=== PATIENT | male | born 1955 | race Caucasian/White ===

== ENCOUNTER 2020-07-21 15:41 | Inpatient (IN) | payer MEDICAID ==
[~2020-07-21] VITALS: Ht 182.9 cm; Wt 98.8 kg
[2020-07-21] MEDS ORDERED: ETOMIDATE 20 MG/10 ML ONE (15:53)
[2020-07-21] MEDS ORDERED: PROPOFOL 10 MG/ML, 100ML IV ONE (15:53)
[2020-07-21] MEDS ORDERED: MIDAZOLAM 1 MG/ML, 5ML ONE (15:53)
[2020-07-21] MEDS ORDERED: SODIUM CHLORIDE FLUSH 10ML SYR IVF ONE (16:00)
[2020-07-21] MEDS ORDERED: SODIUM CHLORIDE 0.9% 1,000ML IVBOLUS ONE ×2 (16:00→17:30)
--- NOTE | 2020-07-21 16:07 | NUR ---
BIB [facility] FROM HOME. PT [facility] AND DX W/ FX L PATELLA AND HAS BEEN WEAK X 4 DAYS. PT HAS BEEN UNABLE TO GET OOB AND HAS DEFECATED/URINATED ON SELF. ALSO HAS DARK BROWN URINE. FOUND TO BE 72% RA PLACED ON 15 L NONREBREATHER O2 SATS INCREASED TO 89-90%. ETCO2 PER [facility] 20-24. RR 38-45. +DIFFUSE RHONCHI. TEMP PER EMS 100.7 PT IS NOT A GOOD HISTORIAN AND IS HAVING DIFFICULTY ANSWERING QUESTIONS. PT AO TO SELF. PT NOTED TO HAVE URINE AND STOOL ON SELF. PT CLEANED AND TREASURE CARE PERFORMED. STAGE 2 PRESSURE ULCER NOTED ON COCCYX.
--- NOTE | 2020-07-21 16:09 | NUR ---
PT PLACED ON OPTIFLOW PT SATING 88% ON 15L NON-REBREATHER MASK. DR. HUMPHRIES AT BEDSIDE AND ERP DR. FRANKEL NOTIFIED OF PT O2 SATS AND BEING PLACED ON OPTIFLOW.
[2020-07-21 16:13] LABS: BASOPHILS # (AUTO) 0.01 x10^3/uL (0-0.1); BASOPHILS % (AUTO) 0 % (0-1); EOSINOPHILS % (AUTO) 0 % (1-7); LYMPHOCYTES # (AUTO) 0.27 x10^3/uL (1-3.4); LYMPHOCYTES % (AUTO) 5 % (22-44); MD NO; MEAN CORPUSCULAR HEMOGLOBIN 31.4 pg (27.5-34.5); MEAN CORPUSCULAR HGB CONC 34.6 g/dL (33.2-36.2); MEAN CORPUSCULAR VOLUME 90.6 fL (81-97); MEAN PLATELET VOLUME 8.2 fL (7.4-10.4); MONOCYTES # (AUTO) 0.43 x10^3/uL (0.2-0.8); MONOCYTES % (AUTO) 9 % (2-9); NEUTROPHILS # (AUTO) 4.32 x10^3/uL (1.8-6.8); NEUTROPHILS % (AUTO) 86 % (42-75); PLATELET COUNT 120 x10^3/uL (130-400); RED BLOOD COUNT 4.44 x10^6/uL (4.38-5.82); RED CELL DISTRIBUTION WIDTH 13.7 % (9.4-14.8)
--- NOTE | 2020-07-21 16:15 | NUR ---
PT NOTED TO BE 87-90% ON OPTIFLOW. ERP NOTIFIED.
[2020-07-21 16:20] LABS: CHLORIDE 107 mmol/L (98-107)
[2020-07-21] MEDS ORDERED: ENOXAPARIN 40 MG/0.4 ML ONE (16:22)
[2020-07-21] MEDS ORDERED: CEFTRIAXONE PMX 1GM/50ML 50 ML ONE (16:22)
[2020-07-21] MEDS: CEFTRIAXONE PMX 1GM/50ML 50 ML IV SCH (16:27)
[2020-07-21] MEDS: DOXYCYCLINE 100 MG in DEXTROSE 5% 250 ML IV SCH ×3 (16:27→16:56)
[2020-07-21] MEDS ORDERED: LABETALOL 5MG/ML, 20ML IVPush PRN (16:30)
[2020-07-21] MEDS ORDERED: ONDANSETRON 2MG/ML, 2ML IVPush PRN (16:30)
[2020-07-21] MEDS ORDERED: OXYcodone IR 5MG TABLET PO PRN (16:30)
[2020-07-21] MEDS ORDERED: ENOXAPARIN 40 MG/0.4 ML SQ SCH (16:30)
[2020-07-21] MEDS ORDERED: POLYETHYLENE GLYCOL 17 GM PACKET PO PRN (16:30)
[2020-07-21] MEDS ORDERED: ENALAPRILAT 1.25 MG/ML, 2ML IVPush PRN (16:30)
[2020-07-21] MEDS ORDERED: CEFTRIAXONE PMX 1GM/50ML 50 ML IV ONE (16:30)
[2020-07-21] MEDS ORDERED: BISACODYL 10 MG SUPP PR PRN (16:30)
--- NOTE | 2020-07-21 16:38 | NUR ---
Patient has given verbal permission for Fransisca Acuna and Alok Garcia-Son to receive all updates regarding his medical care.
[2020-07-21 16:40] LABS: ALBUMIN 3.2 g/dL (3.4-5.0); ANION GAP 10 mmol/L (5-15); CALCIUM 8.6 mg/dL (8.5-10.1)
--- NOTE | 2020-07-21 16:51 | NUR ---
ERP NOTIFIED OF PT O2 SATS REMAINING 87-90%. PER FAMILY PT IS MOUTH BREATHER. PT EDUCATED THE IMPORTANCE OF BREATHING THROUGH NOSE. WHEN THIS RN IS ATBEDSIDE REMINDING PT TO BREATHE THROUGH NOSE PT O2 SATS GO UP TO 92-94%. WHEN PT LEFT W/O PROMPTS MOUTH BREATHES AND DESATS TO 87-90% AGAIN. PT BREATHING RR 39. ERP MADE AWARE. PT CESAR OPTIFLOW WELL.
[2020-07-21 16:59] LABS: ALANINE AMINOTRANSFERASE 47 U/L (12-78); CREATININE 2.13 mg/dL (0.7-1.3)
[2020-07-21 17:03] LABS: BILIRUBIN,TOTAL 0.7 mg/dL (0.2-1.0)
--- NOTE | 2020-07-21 17:08 | NUR ---
PER PEG, PT SON PT HAS BEEN CONFUSED X 4 DAYS.
--- NOTE | 2020-07-21 17:20 | NUR ---
PT CHANGED FROM NASAL CANNULA OPTIFLOW TO MASK OPTIFLOW. PT REMAINS SATING 88-92%. PER ERP DR. FRANKEL DOES NOT WANT TO INTUBATE PT W/ O2 SATS CLOSE TO WNL. ERP MADE AWARE OF PT RR REMAINS ELEVATED.
[2020-07-21] MEDS ORDERED: SODIUM CHLORIDE 0.9%, 250ML IVBOLUS ONE (17:30)
[2020-07-21] MEDS ORDERED: SODIUM CHLORIDE 0.9% 1,000 ML IV SCH (17:30)
[2020-07-21 17:34] LABS: ALKALINE PHOSPHATASE 71 U/L (45-117)
--- NOTE | 2020-07-21 18:02 | NUR ---
PT RESTING ON GURNEY. REPOSITIONED FOR COMFORT.
--- NOTE | 2020-07-21 18:36 | NUR ---
PT ALSO NOTED TO HAVE O2 SATS 92-95% ON OPTIFLOW. PT NOTED TO BE BREATHING EASIER THAN ON ARRIVAL. ERP ALSO MADE AWARE.
--- NOTE | 2020-07-21 18:36 | NUR ---
PT HAD LARGE BM ON SELF. TREASURE CARE PERFORMED. PT REPOSITIONED FOR COMFORT. PT CESAR WELL. RECTAL TEMP TAKEN. PT NOTED TO BE RECTAL TEMP 101.[address] FRANKEL NOTIFIED.
[2020-07-21] MEDS ORDERED: ACETAMINOPHEN 650 MG SUPP ONE (18:38)
--- NOTE | 2020-07-21 18:47 | NUR ---
PT REPOSITIONED FOR COMFORT. RESTING ON GURMADELYN. NADN. VS STABILIZING.
[2020-07-21] MEDS ORDERED: ACETAMINOPHEN 650 MG SUPP PR PRN (19:00)
[2020-07-21 19:10] LABS: CLOSTRIDIUM DIFFICILE ANTIGEN NEGATIVE; CLOSTRIDIUM DIFFICILE TOXIN NEGATIVE (Negative)
[2020-07-21 20:24] VITALS: BP 109/70
[2020-07-21] MEDS ORDERED: ALBUTEROL/IPRATROPIUM 2.5MG/0.5MG, 3 ML ONE (21:30)
[2020-07-22 00:22] LABS: MICROSCOPIC INDICATED
[2020-07-22 00:25] LABS: CHLORIDE,URINE RANDOM 17 mmol/L; POTASSIUM,URINE RANDOM 40 mmol/L; SODIUM,URINE RANDOM 20 mmol/L
[2020-07-22 04:00] VITALS: BP 107/73
[2020-07-22] MEDS ORDERED: AMIODARONE 300 MG in DEXTROSE 5% 100 ML IV ONE (04:30)
[2020-07-22] MEDS ORDERED: AMIODARONE 50 MG/ML, 3ML IVPush ONE ×2 (04:30→20:00)
[2020-07-22] MEDS ORDERED: FILTER 0.22 MICRON IV ONE (04:30)
[2020-07-22 04:35] LABS: MEAN CORPUSCULAR HGB CONC 33.6 g/dL (33.2-36.2); MEAN CORPUSCULAR VOLUME 92.2 fL (81-97); MEAN PLATELET VOLUME 8.1 fL (7.4-10.4); PLATELET COUNT 100 x10^3/uL (130-400); RED BLOOD COUNT 4.49 x10^6/uL (4.38-5.82); RED CELL DISTRIBUTION WIDTH 14.1 % (9.4-14.8)
[2020-07-22 04:41] LABS: ALANINE AMINOTRANSFERASE 54 U/L (12-78); ALBUMIN 2.8 g/dL (3.4-5.0); ANION GAP 9 mmol/L (5-15); CALCIUM 8.6 mg/dL (8.5-10.1); CHLORIDE 115 mmol/L (98-107); CREATININE 1.61 mg/dL (0.7-1.3)
[2020-07-22] MEDS: DOXYCYCLINE 100 MG in DEXTROSE 5% 250 ML IV SCH ×2 (04:41→16:12)
[2020-07-22 04:43] LABS: ALKALINE PHOSPHATASE 68 U/L (45-117); BILIRUBIN,TOTAL 0.6 mg/dL (0.2-1.0); TOTAL PROTEIN 7.5 g/dL (6.4-8.2)
[2020-07-22 05:00] LABS: CREATINE KINASE, TOTAL 6762 U/L (39-308)
[2020-07-22] MEDS ORDERED: FILTER 0.22 MICRON IV PRN (05:00)
[2020-07-22] MEDS: AMIODARONE 450 MG in DEXTROSE 5% 241 ML IV PRN ×2 (05:08→10:38)
[2020-07-22 05:55] LABS: BASOPHILS % (AUTO) 0 % (0-1); EOSINOPHILS % (AUTO) 0 % (1-7); LYMPHOCYTES # (AUTO) 0.33 x10^3/uL (1-3.4); LYMPHOCYTES % (AUTO) 9 % (22-44); MD SCAN; MONOCYTES % (AUTO) 10 % (2-9); NEUTROPHILS # (AUTO) 3.12 x10^3/uL (1.8-6.8); NEUTROPHILS % (AUTO) 81 % (42-75)
[2020-07-22] MEDS ORDERED: SODIUM CHLORIDE 0.9%, 500ML IVBOLUS ONE (06:00)
[2020-07-22] MEDS ORDERED: POTASSIUM CHLORIDE 20 MEQ TAB.ER.PRT PO ONE (07:30)
[2020-07-22 07:42] LABS: TROPONIN I 0.102 ng/mL (0.000-0.045)
[2020-07-22] MEDS: SENNA/DOCUSATE TABLET PO SCH (08:52)
[2020-07-22] MEDS ORDERED: ETOMIDATE 40 MG/20 ML IVPush ONE (09:00)
[2020-07-22] MEDS ORDERED: MIDAZOLAM 1 MG/ML, 5ML IVPush ONE (09:00)
[2020-07-22] MEDS: ACETAMINOPHEN 325 MG TABLET PO PRN ×2 (11:03→16:11)
[2020-07-22] MEDS: PROPOFOL 100 ML IV SCH ×4 (11:30→22:57)
[2020-07-22] MEDS ORDERED: ONDANSETRON 2MG/ML, 2ML IV PRN (11:30)
[2020-07-22] MEDS ORDERED: PHARMACY MAY ADJ FOR RENAL FX MC SCH (11:30)
[2020-07-22] MEDS ORDERED: GLUCAGON 1 MG IM PRN (11:30)
[2020-07-22] MEDS: SODIUM CHLORIDE FLUSH 10ML SYR IVF SCH ×2 (11:30→20:04)
[2020-07-22] MEDS ORDERED: DEXTROSE 50%, 50ML SYRINGE IVPush PRN (11:30)
[2020-07-22] MEDS ORDERED: DEXTROSE 4 GM TAB.CHEW PO PRN (11:30)
[2020-07-22] MEDS ORDERED: Enoxaparin 1 mg/kg protocol SQ SCH (14:00)
[2020-07-22] MEDS ORDERED: HEPARIN 5,000 UNITS/ML, 1ML IV ONE (14:30)
[2020-07-22] MEDS ORDERED: HEPARIN 25,000 UNITS/250ML PMX 250 ML IV PRN (14:30)
[2020-07-22] MEDS ORDERED: HEPARIN 5,000 UNITS/ML, 1ML IV PRN (14:30)
[2020-07-22] MEDS: CEFTRIAXONE PMX 1GM/50ML 50 ML IV SCH (16:12)
[2020-07-22] MEDS ORDERED: IBUPROFEN 600 MG TABLET PO ONE (17:00)
[2020-07-22] MEDS ORDERED: AMIODARONE 150 MG in DEXTROSE 5% 100 ML IV ONE (19:00)
[2020-07-22] MEDS ORDERED: SODIUM CHLORIDE 0.9% 500 ML IV SCH (20:00)
[2020-07-22] MEDS: NOREPINEPHRINE 8 MG in SODIUM CHLORIDE 0.9% 242 ML IV PRN (21:17)
[2020-07-23] MEDS: AMIODARONE 450 MG in DEXTROSE 5% 241 ML IV PRN ×2 (00:30→13:58)
[2020-07-23] MEDS: FILTER 0.22 MICRON FOR AMIODARONE IV PRN ×2 (00:30→13:58)
[2020-07-23] MEDS: PROPOFOL 100 ML IV SCH ×5 (01:40→22:59)
[2020-07-23] MEDS: DOXYCYCLINE 100 MG in DEXTROSE 5% 250 ML IV SCH ×2 (03:48→15:32)
[2020-07-23 04:00] VITALS: BP 99/63
[2020-07-23 04:43] LABS: BASOPHILS # (AUTO) 0.01 x10^3/uL (0-0.1); BASOPHILS % (AUTO) 0 % (0-1); EOSINOPHILS % (AUTO) 0 % (1-7); LYMPHOCYTES # (AUTO) 0.46 x10^3/uL (1-3.4); LYMPHOCYTES % (AUTO) 8 % (22-44); MD NO; MEAN CORPUSCULAR HEMOGLOBIN 31.4 pg (27.5-34.5); MEAN CORPUSCULAR HGB CONC 33.9 g/dL (33.2-36.2); MEAN CORPUSCULAR VOLUME 92.6 fL (81-97); MONOCYTES # (AUTO) 0.21 x10^3/uL (0.2-0.8); MONOCYTES % (AUTO) 4 % (2-9); NEUTROPHILS # (AUTO) 4.86 x10^3/uL (1.8-6.8); NEUTROPHILS % (AUTO) 88 % (42-75); PLATELET COUNT 119 x10^3/uL (130-400); RED BLOOD COUNT 4.23 x10^6/uL (4.38-5.82); RED CELL DISTRIBUTION WIDTH 14.2 % (9.4-14.8)
[2020-07-23 04:45] LABS: ANION GAP 6 mmol/L (5-15); CALCIUM 7.9 mg/dL (8.5-10.1); CHLORIDE 113 mmol/L (98-107); CREATININE 1.94 mg/dL (0.7-1.3)
[2020-07-23] MEDS: ACETAMINOPHEN 325 MG TABLET PO PRN ×2 (05:32→21:17)
[2020-07-23] MEDS ORDERED: ENOXAPARIN 40 MG/0.4 ML SQ SCH (07:30)
[2020-07-23] MEDS ORDERED: POTASSIUM CHLORIDE 10% 40 MEQ/30 ML UDC PO ONE (07:30)
[2020-07-23] MEDS: PANTOPRAZOLE 40 MG IV IV SCH (07:44)
[2020-07-23] MEDS: SODIUM CHLORIDE FLUSH 10ML SYR IVF SCH ×2 (07:45→21:12)
[2020-07-23] MEDS: SODIUM CHLORIDE 0.45% 1,000 ML IV SCH ×2 (08:34→18:55)
[2020-07-23] MEDS: SENNA/DOCUSATE TABLET PO SCH (09:00)
[2020-07-23] MEDS: NOREPINEPHRINE 8 MG in SODIUM CHLORIDE 0.9% 242 ML IV PRN (09:16)
[2020-07-23] MEDS ORDERED: ENOXAPARIN 60 MG/0.6 ML SQ ONE (10:00)
[2020-07-23] MEDS ORDERED: AMIODARONE 150 MG in DEXTROSE 5% 100 ML IV ONE (15:30)
[2020-07-23] MEDS: CEFTRIAXONE PMX 1GM/50ML 50 ML IV SCH (15:32)
[2020-07-23] MEDS: ENOXAPARIN 100 MG/ML SQ SCH (21:09)
[2020-07-24] MEDS: NOREPINEPHRINE 8 MG in SODIUM CHLORIDE 0.9% 242 ML IV PRN ×2 (00:49→20:06)
[2020-07-24] MEDS: FILTER 0.22 MICRON FOR AMIODARONE IV PRN (00:49)
[2020-07-24] MEDS: AMIODARONE 450 MG in DEXTROSE 5% 241 ML IV PRN ×3 (00:49→15:56)
[2020-07-24] MEDS: ACETAMINOPHEN 325 MG TABLET PO PRN (02:01)
[2020-07-24] MEDS: PROPOFOL 100 ML IV SCH ×2 (02:27→06:00)
[2020-07-24 04:00] VITALS: BP 88/58
[2020-07-24 04:27] LABS: BASOPHILS # (AUTO) 0.01 x10^3/uL (0-0.1); BASOPHILS % (AUTO) 0 % (0-1); EOSINOPHILS # (AUTO) 0.01 x10^3/uL (0-0.4); EOSINOPHILS % (AUTO) 0 % (1-7); LYMPHOCYTES # (AUTO) 0.45 x10^3/uL (1-3.4); LYMPHOCYTES % (AUTO) 8 % (22-44); MD NO; MEAN CORPUSCULAR HEMOGLOBIN 31.1 pg (27.5-34.5); MEAN CORPUSCULAR HGB CONC 33.6 g/dL (33.2-36.2); MEAN CORPUSCULAR VOLUME 92.6 fL (81-97); MEAN PLATELET VOLUME 8.2 fL (7.4-10.4); MONOCYTES # (AUTO) 0.23 x10^3/uL (0.2-0.8); MONOCYTES % (AUTO) 4 % (2-9); NEUTROPHILS # (AUTO) 5.01 x10^3/uL (1.8-6.8); NEUTROPHILS % (AUTO) 88 % (42-75); PLATELET COUNT 109 x10^3/uL (130-400); RED BLOOD COUNT 4.07 x10^6/uL (4.38-5.82); RED CELL DISTRIBUTION WIDTH 14.5 % (9.4-14.8)
[2020-07-24] MEDS: DOXYCYCLINE 100 MG in DEXTROSE 5% 250 ML IV SCH ×2 (04:39→17:16)
[2020-07-24 04:42] LABS: ANION GAP 9 mmol/L (5-15); CALCIUM 7.7 mg/dL (8.5-10.1); CHLORIDE 111 mmol/L (98-107)
[2020-07-24 04:59] LABS: CREATINE KINASE, TOTAL 1315 U/L (39-308); CREATININE 2.52 mg/dL (0.7-1.3)
[2020-07-24] MEDS: ENOXAPARIN 100 MG/ML SQ SCH ×2 (07:34→21:58)
[2020-07-24] MEDS: PANTOPRAZOLE 40 MG IV IV SCH (07:34)
[2020-07-24] MEDS: SENNA/DOCUSATE TABLET PO SCH (07:34)
[2020-07-24] MEDS: SODIUM CHLORIDE FLUSH 10ML SYR IVF SCH ×2 (07:35→20:50)
[2020-07-24] MEDS: MIDAZOLAM HCL 50 MG in SODIUM CHLORIDE 0.9% 40 ML IV PRN ×3 (09:59→20:01)
[2020-07-24] MEDS ORDERED: DILTIAZEM 125 MG in SODIUM CHLORIDE 0.9% 100 ML IV PRN (12:30)
[2020-07-24] MEDS: PROPOFOL 100 ML IV PRN ×3 (12:59→22:00)
[2020-07-24] MEDS: VECURONIUM 50 MG in SODIUM CHLORIDE 0.9% 50 ML IV PRN (17:16)
[2020-07-24] MEDS: CEFTRIAXONE PMX 1GM/50ML 50 ML IV SCH (17:16)
[2020-07-24] MEDS: FENTANYL PF 1,000 MCG in SODIUM CHLORIDE 0.9% 80 ML IV PRN (17:16)
[2020-07-24] MEDS: methylPREDNISolone SOD SUCC 40 MG/ML IVPush SCH ×2 (17:17→23:20)
[2020-07-24] MEDS ORDERED: DIGOXIN 0.25 MG/ML, 2ML IVPush ONE (19:00)
[2020-07-24] MEDS: SODIUM BICARBONATE 8.4% 100 MEQ in DEXTROSE 5% 1,000 ML IV SCH (19:58)
[2020-07-24] MEDS: SODIUM BICARBONATE 8.4% 150 MEQ in STERILE WATER 1,000 ML IV SCH (23:20)
[2020-07-25] MEDS ORDERED: SODIUM BICARBONATE 1 MEQ/ML, 50ML VIAL IVPush ONE
[2020-07-25] MEDS: AMIODARONE 450 MG in DEXTROSE 5% 241 ML IV PRN (00:05)
[2020-07-25] MEDS ORDERED: SODIUM BICARB 8.4%, 50ML SYRINGE IVPush ONE ×3 (02:00→04:30)
[2020-07-25] MEDS: SODIUM BICARBONATE 8.4% 100 MEQ in DEXTROSE 5% 1,000 ML IV SCH ×2 (02:14→09:40)
[2020-07-25] MEDS: PROPOFOL 100 ML IV PRN ×3 (03:02→19:45)
[2020-07-25 04:00] VITALS: BP 89/58
[2020-07-25] MEDS: DOXYCYCLINE 100 MG in DEXTROSE 5% 250 ML IV SCH ×2 (04:03→16:53)
[2020-07-25 04:19] LABS: BASOPHILS % (AUTO) 0 % (0-1); EOSINOPHILS % (AUTO) 0 % (1-7); LYMPHOCYTES # (AUTO) 0.39 x10^3/uL (1-3.4); LYMPHOCYTES % (AUTO) 3 % (22-44); MD NO; MEAN CORPUSCULAR HEMOGLOBIN 30.8 pg (27.5-34.5); MEAN CORPUSCULAR VOLUME 93.6 fL (81-97); MEAN PLATELET VOLUME 7.4 fL (7.4-10.4); MONOCYTES # (AUTO) 0.36 x10^3/uL (0.2-0.8); MONOCYTES % (AUTO) 3 % (2-9); NEUTROPHILS # (AUTO) 11.04 x10^3/uL (1.8-6.8); NEUTROPHILS % (AUTO) 94 % (42-75); PLATELET COUNT 129 x10^3/uL (130-400); RED BLOOD COUNT 4.28 x10^6/uL (4.38-5.82); RED CELL DISTRIBUTION WIDTH 14.5 % (9.4-14.8)
[2020-07-25 04:28] LABS: ANION GAP 8 mmol/L (5-15); CALCIUM 7.4 mg/dL (8.5-10.1); CHLORIDE 103 mmol/L (98-107); CREATININE 3.38 mg/dL (0.7-1.3); TRIGLYCERIDES 279 mg/dL (50-200)
[2020-07-25 04:30] LABS: CREATINE KINASE, TOTAL 596 U/L (39-308)
[2020-07-25] MEDS: methylPREDNISolone SOD SUCC 40 MG/ML IVPush SCH ×4 (04:37→23:08)
[2020-07-25] MEDS: VECURONIUM 50 MG in SODIUM CHLORIDE 0.9% 50 ML IV PRN (05:00)
[2020-07-25] MEDS: SODIUM BICARBONATE 8.4% 150 MEQ in STERILE WATER 1,000 ML IV SCH (06:33)
[2020-07-25] MEDS ORDERED: ALBUTEROL/IPRATROPIUM 2.5MG/0.5MG, 3 ML ONE (07:10)
[2020-07-25] MEDS: NOREPINEPHRINE 8 MG in SODIUM CHLORIDE 0.9% 242 ML IV PRN ×2 (07:47→15:51)
[2020-07-25] MEDS: PANTOPRAZOLE 40 MG IV IV SCH (10:18)
[2020-07-25] MEDS: ENOXAPARIN 100 MG/ML SQ SCH (10:18)
[2020-07-25] MEDS: SENNA/DOCUSATE TABLET PO SCH (10:19)
[2020-07-25] MEDS: SODIUM CHLORIDE FLUSH 10ML SYR IVF SCH ×2 (10:19→19:44)
[2020-07-25 14:28] LABS: D-DIMER 0.97 ug/mlFEU (0.00-0.52)
[2020-07-25] MEDS ORDERED: HEPARIN 5,000 UNITS/ML, 1ML IV ONE (14:30)
[2020-07-25] MEDS ORDERED: HEPARIN 5,000 UNITS/ML, 1ML IV PRN (14:30)
[2020-07-25] MEDS ORDERED: PHARMACY MAY ADJ FOR RENAL FX MC PRN (14:30)
[2020-07-25] MEDS: MIDAZOLAM HCL 50 MG in SODIUM CHLORIDE 0.9% 40 ML IV PRN (14:35)
[2020-07-25 15:38] LABS: INTERNATIONAL NORMALIZED RATIO 0.97 (0.93-1.1)
[2020-07-25] MEDS: CEFTRIAXONE PMX 1GM/50ML 50 ML IV SCH (16:53)
[2020-07-25] MEDS ORDERED: ASCORBATE SODIUM 3,000 MG in SODIUM CHLORIDE 0.9% 250 ML IVPB SCH (19:00)
[2020-07-25] MEDS: THIAMINE 200 MG in SODIUM CHLORIDE 0.9% 50 ML IV SCH (19:43)
[2020-07-25] MEDS: HEPARIN 25,000 UNITS/250ML PMX 250 ML IV PRN (21:11)
[2020-07-26] MEDS: MIDAZOLAM HCL 50 MG in SODIUM CHLORIDE 0.9% 40 ML IV PRN ×2 (02:19→10:44)
[2020-07-26] MEDS: PROPOFOL 100 ML IV PRN (02:20)
[2020-07-26] MEDS: DOXYCYCLINE 100 MG in DEXTROSE 5% 250 ML IV SCH ×2 (04:00→16:30)
[2020-07-26 04:28] LABS: MEAN CORPUSCULAR HEMOGLOBIN 31.1 pg (27.5-34.5); MEAN CORPUSCULAR HGB CONC 33.4 g/dL (33.2-36.2); MEAN CORPUSCULAR VOLUME 93.1 fL (81-97); MEAN PLATELET VOLUME 7.7 fL (7.4-10.4); PLATELET COUNT 133 x10^3/uL (130-400); RED CELL DISTRIBUTION WIDTH 14.6 % (9.4-14.8)
[2020-07-26 04:30] VITALS: BP 92/52
[2020-07-26 04:39] LABS: ANION GAP 11 mmol/L (5-15); CALCIUM 7.1 mg/dL (8.5-10.1); CHLORIDE 100 mmol/L (98-107); CREATININE 4.73 mg/dL (0.7-1.3)
[2020-07-26] MEDS: methylPREDNISolone SOD SUCC 40 MG/ML IVPush SCH ×4 (04:58→21:08)
[2020-07-26 05:38] LABS: MD YES
[2020-07-26 05:40] LABS: BAND#(MANUAL) 0.85 x10^3/uL; BANDS%(MANUAL) 6 % (0-7); LYMPH#(MANUAL) 0.99 x10^3/uL (1-3.4); LYMPHS% (MANUAL) 7 % (22-44); METAMYELOCYTES# (MANUAL) 0.14 x10^3/uL (0-0); METAMYELOCYTES% (MANUAL) 1 % (0-1); MONOS#(MANUAL) 0.42 x10^3/uL (0.3-2.7); MONOS% (MANUAL) 3 % (2-9); MYELOCYTES# (MANUAL) 0.14 x10^3/uL (0-0); MYELOCYTES% (MANUAL) 1 % (0-0); SEG#(MANUAL) 11.56 x10^3/uL (1.8-6.8); SEGS% (MANUAL) 82 % (42-75)
[2020-07-26 05:41] LABS: <PLATELET ESTIMATE> ADEQUATE; <PLT MORPHOLOGY> NORMAL PLT MORPH; <RBC MORPHOLOGY> NORMAL; TOXIC GRAN 1+
[2020-07-26] MEDS: SENNA/DOCUSATE TABLET PO SCH (08:17)
[2020-07-26] MEDS: PANTOPRAZOLE 40 MG IV IV SCH (08:17)
[2020-07-26] MEDS: SODIUM CHLORIDE FLUSH 10ML SYR IVF SCH ×2 (08:17→21:08)
[2020-07-26] MEDS: CHOLECALCIFEROL 1,000 UNIT TABLET PO SCH (08:17)
[2020-07-26] MEDS ORDERED: ENOXAPARIN 100 MG/ML SQ SCH (10:00)
[2020-07-26 10:05] LABS: ALBUMIN 1.9 g/dL (3.4-5.0); BILIRUBIN, DIRECT 0.4 mg/dL (0.1-0.2); BILIRUBIN,INDIRECT 0.1 mg/dL (0.0-2.0); BILIRUBIN,TOTAL 0.5 mg/dL (0.2-1.0); TOTAL PROTEIN 6.2 g/dL (6.4-8.2)
[2020-07-26] MEDS: NOREPINEPHRINE 8 MG in SODIUM CHLORIDE 0.9% 242 ML IV PRN (10:43)
[2020-07-26] MEDS ORDERED: PHARMACY INSTRUCTION MC PRN (14:00)
[2020-07-26] MEDS ORDERED: ALBUMIN HUMAN 25% 100 ML IV PRN (15:00)
[2020-07-26] MEDS: ALBUMIN HUMAN 25% 100 ML IV PRN ×3 (15:27→18:04)
[2020-07-26] MEDS: FENTANYL PF 1,000 MCG in SODIUM CHLORIDE 0.9% 80 ML IV PRN (16:45)
[2020-07-26] MEDS ORDERED: REMDESIVIR 100 MG in SODIUM CHLORIDE 0.9% 250 ML IVPB ONE (21:00)
[2020-07-26] MEDS: CEFTRIAXONE PMX 1GM/50ML 50 ML IV SCH (21:08)
[2020-07-26] MEDS: THIAMINE 200 MG in SODIUM CHLORIDE 0.9% 50 ML IV SCH (21:08)
[2020-07-27] MEDS: HEPARIN 25,000 UNITS/250ML PMX 250 ML IV PRN (02:42)
[2020-07-27] MEDS: DOXYCYCLINE 100 MG in DEXTROSE 5% 250 ML IV SCH (04:22)
[2020-07-27] MEDS: methylPREDNISolone SOD SUCC 40 MG/ML IVPush SCH ×2 (04:23→11:01)
[2020-07-27 04:33] VITALS: BP 134/64
[2020-07-27 05:12] LABS: ANION GAP 10 mmol/L (5-15); CALCIUM 7.3 mg/dL (8.5-10.1); CHLORIDE 101 mmol/L (98-107); CREATININE 4.22 mg/dL (0.7-1.3)
[2020-07-27 05:17] LABS: MEAN CORPUSCULAR HEMOGLOBIN 30.9 pg (27.5-34.5); MEAN CORPUSCULAR HGB CONC 33.5 g/dL (33.2-36.2); MEAN CORPUSCULAR VOLUME 92.3 fL (81-97); MEAN PLATELET VOLUME 7.5 fL (7.4-10.4); PLATELET COUNT 119 x10^3/uL (130-400); RED BLOOD COUNT 3.62 x10^6/uL (4.38-5.82); RED CELL DISTRIBUTION WIDTH 14.9 % (9.4-14.8)
[2020-07-27] MEDS: FENTANYL PF 1,000 MCG in SODIUM CHLORIDE 0.9% 80 ML IV PRN (05:50)
[2020-07-27 06:07] LABS: MD YES
[2020-07-27 06:10] LABS: BAND#(MANUAL) 1.74 x10^3/uL; BANDS%(MANUAL) 15 % (0-7); BASOS#(MANUAL) 0.12 x10^3/uL (0-0.1); BASOS% (MANUAL) 1 % (0-1); LYMPH#(MANUAL) 0.58 x10^3/uL (1-3.4); LYMPHS% (MANUAL) 5 % (22-44); MONOS% (MANUAL) 6 % (2-9); MYELOCYTES# (MANUAL) 0.12 x10^3/uL (0-0); MYELOCYTES% (MANUAL) 1 % (0-0); REACTIVE LYMPHS # (MANUAL) 0.12 x10^3/uL (0-0); REACTIVE LYMPHS % (MANUAL) 1 % (0-0); SEG#(MANUAL) 8.24 x10^3/uL (1.8-6.8); SEGS% (MANUAL) 71 % (42-75)
[2020-07-27 06:11] LABS: <RBC MORPHOLOGY> NORMAL
[2020-07-27 06:12] LABS: <PLATELET ESTIMATE> ADEQUATE; <PLT MORPHOLOGY> NORMAL PLT MORPH; TOXIC GRAN 1+
[2020-07-27] MEDS: SENNA/DOCUSATE TABLET PO SCH (08:11)
[2020-07-27] MEDS: CHOLECALCIFEROL 1,000 UNIT TABLET PO SCH (08:11)
[2020-07-27] MEDS: PANTOPRAZOLE 40 MG IV IV SCH (08:11)
[2020-07-27] MEDS: SODIUM CHLORIDE FLUSH 10ML SYR IVF SCH (08:12)
[2020-07-27] MEDS: ACETAMINOPHEN 325 MG TABLET PO PRN (08:12)
[2020-07-27] MEDS ORDERED: ACETAMINOPHEN 650 MG/20.3 ML UDC ONE (08:12)
[2020-07-27] MEDS ORDERED: LORazepam 2 MG/ML, 1ML ONE (12:45)
[2020-07-27] MEDS ORDERED: MORPHINE SULFATE 4 MG/ML, 1ML ONE (12:46)
[2020-07-27] MEDS ORDERED: MORPHINE SULFATE 4 MG/ML, 1ML IV ONE (13:00)
[2020-07-27] MEDS ORDERED: LORazepam 2 MG/ML, 1ML IVPush PRN (13:00)
[2020-07-27] MEDS ORDERED: LORazepam 2 MG/ML, 1ML IV ONE (13:00)
[2020-07-27] MEDS ORDERED: ONDANSETRON 2MG/ML, 2ML IVPush PRN (13:00)
[2020-07-27] MEDS ORDERED: SCOPOLAMINE 1MG PATCH TD SCH (13:00)
[2020-07-27] MEDS ORDERED: MORPHINE SULFATE 4 MG/ML, 1ML IVPush PRN (13:00)
[2020-07-27] MEDS ORDERED: LORazepam 2 MG/ML, 1ML IVPush SCH (13:00)
[2020-07-27] MEDS ORDERED: MORPHINE 30MG/30ML PCA.SYR IV PRN (13:00)
[2020-07-27] MEDS ORDERED: ATROPINE OPHTH SOLN 1%, 5ML PO PRN (13:00)
[2020-07-28] MEDS ORDERED: REMDESIVIR 50 MG in SODIUM CHLORIDE 0.9% 250 ML IVPB SCH (21:00)
== END 2020-07-27 17:25 | disposition expired | DRG 720 ==
LOC: ED 16:43 → EDIP 17:06 → ICU 19:51
PROVIDERS: ADMIT Internal Medicine; ATTEND Internal Medicine
PROC: 0BH17EZ Insertion of Endotracheal Airway into Trachea, Via Natural or Artificial Opening (ICD-10-PCS; 2020-07-21)
PROC: 5A1955Z Respiratory Ventilation, Greater than 96 Consecutive Hours (ICD-10-PCS; principal; 2020-07-22)
PROC: 02HV33Z Insertion of Infusion Device into Superior Vena Cava, Percutaneous Approach (ICD-10-PCS; 2020-07-25)
PROC: XW033E5 Introduction of Remdesivir Anti-infective into Peripheral Vein, Percutaneous Approach, New Technology Group 5 (ICD-10-PCS; 2020-07-26)
DX: A41.9 Sepsis, unspecified organism (principal); D63.8 Anemia in other chronic diseases classified elsewhere; D68.59 Other primary thrombophilia; D69.59 Other secondary thrombocytopenia; E83.51 Hypocalcemia; E86.1 Hypovolemia; E87.2 Acidosis; E88.09 Other disorders of plasma-protein metabolism, not elsewhere classified; F17.210 Nicotine dependence, cigarettes, uncomplicated; G83.9 Paralytic syndrome, unspecified; G93.41 Metabolic encephalopathy; I35.8 Other nonrheumatic aortic valve disorders; I45.5 Other specified heart block; I48.91 Unspecified atrial fibrillation; I48.92 Unspecified atrial flutter; J12.89 Other viral pneumonia; J43.9 Emphysema, unspecified; J44.0 Chronic obstructive pulmonary disease with (acute) lower respiratory infection; J96.01 Acute respiratory failure with hypoxia; M62.82 Rhabdomyolysis; N17.0 Acute kidney failure with tubular necrosis; R32 Unspecified urinary incontinence; R65.21 Severe sepsis with septic shock; T38.0X5A Adverse effect of glucocorticoids and synthetic analogues, initial encounter; R74.0 Nonspecific elevation of levels of transaminase and lactic acid dehydrogenase [LDH]; U07.1 COVID-19; Z51.5 Encounter for palliative care; Z66 Do not resuscitate; Z99.11 Dependence on respirator [ventilator] status; Z99.2 Dependence on renal dialysis; Z79.899 Other long term (current) drug therapy; Z79.891 Long term (current) use of opiate analgesic; Z79.01 Long term (current) use of anticoagulants; D72.829 Elevated white blood cell count, unspecified; R59.0 Localized enlarged lymph nodes
CPT/HCPCS: 36415; 36556; 36600; 70450; 71045; 71250; 76770; 76937; 77001; 80048; 80053; 80076; 81001; 82436; 82550; 82803; 83036; 83605; 83735; 83880; 84133; 84300; 84443; 84478; 84484; 85014; 85018; 85025; 85379; 85384; 85520; 85610; 85730; 86705; 86706; 87040; 87070; 87081; 87086; 87205; 87324; 87340; 87635; 90935; 93005; 93306; 93970; 94002; 94003; 96361; 96365; 96372; C1894; G0378; J0696; J1644; J1650; J2250; J2704; J3010; J3411; J7060; J7070; P9047; C1751; C9113; J0282; J1160; J1642; J2060; J2270; J2920; J7030; J7040; J7050